=== PATIENT | female | born 1995 | race Caucasian/White ===

== ENCOUNTER 2021-03-13 15:44 | Outpatient (CLI) | payer OTHER, SELFPAY ==
[2021-03-13 16:21] LABS: Absolute Lymphocyte Count 1.73 X10^3/uL (0.83-4.51); Absolute Neutrophil Count 6.1 X10^3/uL (2.0-7.7); Basophil# 0.02 X10^3/uL; Basophil% 0.2 % (0-1); Eosinophil# 0.01 X10^3/uL; Eosinophils% 0.1 % (0-5); Hematocrit 41.4 % (37-47); Hemoglobin 14.1 g/dL (12.0-15.0); Lymphocyte # 1.73 X10^3/ul (0.83-4.51); Lymphocyte % 20.5 % (19-41); Mean Corp Hgb Conc 34.1 g/dL (32-36); Mean Corpuscular Hgb 29.8 pg (27.0-32.0); Mean Corpuscular Volume 87.5 fL (81-99); Mean Platelet Vol. 10.9 fl (6.2-12.0); Monocyte# 0.57 X10^3/uL; Monocyte% 6.8 % (0-10); NRBC Flagged by Analyzer 0 % (0-5); Neutrophil # 6.07 X10^3/uL (2.7-7.7); Neutrophil % 72.2 % (47-70); Platelet Count 264 K/mm3 (150-450); RBC Distribution Width CV 12.9 % (11.6-14.6); RBC Distribution Width SD 41.6 fl (35.1-43.9); Red Blood Count 4.73 M/mm3 (4.2-5.4); White Blood Count 8.4 K/mm3 (4.4-11.0)
[2021-03-16 04:07] LABS: Chlamydia By Nucleic Acid AMP Negative (Negative)
[2021-03-16 09:20] LABS: HIV - WCH Non-Reactive (Nonreactive); Hepatitis B Surface Antigen Non-Reactive (Nonreactive); Hepatitis C Antibody Non-Reactive (Nonreactive); Rubella IgG Reactive (Nonreactive); Syphilis Antibodies Non-reactive
[2021-03-16 11:24] LABS: Gonococcus By Nucleic Acid AMP Negative (Negative)
[2021-03-24 12:48] LABS: HPV Reflexed? NOT INDICATED
== END 2021-03-13 23:59 | disposition short-term general hospital (02) ==
LOC: WOBLAB 15:48
PROVIDERS: Visit Provider Obstetrics & Gynecology
DX: Z34.81 Encounter for supervision of other normal pregnancy, first trimester (principal); Z12.4 Encounter for screening for malignant neoplasm of cervix; Z11.3 Encounter for screening for infections with a predominantly sexual mode of transmission
CPT/HCPCS: 36415; 85025; 86703; 86762; 86780; 86803; 87086; 87088; 87340; 87491; 87591; 88175; G0145

== ENCOUNTER → 2021-08-13 | Outpatient (CLI) | payer OTHER, SELFPAY ==
[2021-08-13 10:58] LABS: Hematocrit 39.2 % (37-47); Hemoglobin 12.8 g/dL (12.0-15.0); Mean Corp Hgb Conc 32.7 g/dL (32-36); Mean Corpuscular Hgb 30.5 pg (27.0-32.0); Mean Corpuscular Volume 93.3 fL (81-99); Mean Platelet Vol. 11.2 fl (6.2-12.0); Platelet Count 226 K/mm3 (150-450); RBC Distribution Width CV 12.6 % (11.6-14.6); RBC Distribution Width SD 43.1 fl (35.1-43.9); White Blood Count 7.8 K/mm3 (4.4-11.0)
[2021-08-13 11:07] LABS: Glucose Challenge Gest 1H 50g 128 mg/dL (70-140)
== END | disposition home or self-care (01) ==
PROVIDERS: Visit Provider Obstetrics & Gynecology
DX: Z34.83 Encounter for supervision of other normal pregnancy, third trimester (principal)
CPT/HCPCS: 36415; 82950; 85027

== ENCOUNTER → 2021-10-01 | Outpatient (CLI) | payer OTHER, SELFPAY | END | disposition home or self-care (01) | LOC: LABSPEC 10-02 08:38 | PROVIDERS: Visit Provider Obstetrics & Gynecology | DX: Z36.85 Encounter for antenatal screening for Streptococcus B (principal) | CPT/HCPCS: 87081 ==

== ENCOUNTER 2021-10-24 08:05 | Inpatient (IN) | payer OTHER, SELFPAY ==
[2021-10-24] VITALS (87 sets, daily range): BP systolic 95–139; BP diastolic 51–90; PULSE 57–104; TEMP 36.1–37.3; O2SAT 72–100; BMI 27.5
[2021-10-24 07:58] LABS: ROM Internal Control Test YES-OK TO RESULT pt. (Internal QC)
[2021-10-24 08:00] LABS: ROM Patient Test POSITIVE (Negative)
[2021-10-24] MEDS: Lactated Ringers 1,000 ML 50 ML IV (09:20)
--- NOTE | 2021-10-24 09:31 | PCM.HP.BLA ---
History and Physical Date of Admission: 10/24/21 Chief complaint: Leakage of fluid History present illness: 26-year-old G1, P0 at 39 weeks and 2 days with JAJA 10/29/2021 arrives with leakage of fluid of clear fluid at 0400. Denies headache, visual changes, chest pain, shortness of breath, nausea vomit, right upper quadrant pain. Patient states good movement. Past medical history: None Medications: vitamin Past surgical history: Left meniscus, wisdom teeth, cystoscopy Allergies: No known drug allergies Family history: Denies history of DVT or PE Social history: Denies smoking, alcohol use, drug use Review of systems: Besides above pertinent positives a full review of systems was performed and found to be negative Physical exam: Vitals: Blood pressure 134/65 pulse 94 General: Normal-appearing no acute distress HEENT: Normocephalic/atraumatic no cervical of adenopathy Cardiac/respiratory: No use accessory muscles, nonlabored breathing Abdomen: Soft, nontender, gravid Extremities: No peripheral edema normal peripheral pulses Psych: Normal affect normal demeanor nonpressured speech Labs: ROM positive Assessment plan: 26-year-old G1, P0 at 39 weeks and 2 days with spontaneous rupture of membranes Admit labor and delivery CEFM GBS negative PROM to start Pitocin Routine orders Anesthesia to see
[2021-10-24 10:11] LABS: Absolute Lymphocyte Count 1.52 X10^3/uL (0.83-4.51); Absolute Neutrophil Count 6.5 X10^3/uL (2.0-7.7); Basophil# 0.01 X10^3/uL; Basophil% 0.1 % (0-1); Eosinophil# 0.01 X10^3/uL; Eosinophils% 0.1 % (0-5); Hematocrit 37.5 % (37-47); Hemoglobin 12.2 g/dL (12.0-15.0); Lymphocyte # 1.52 X10^3/ul (0.83-4.51); Lymphocyte % 17.4 % (19-41); Mean Corp Hgb Conc 32.5 g/dL (32-36); Mean Corpuscular Hgb 28.4 pg (27.0-32.0); Mean Corpuscular Volume 87.2 fL (81-99); Mean Platelet Vol. 11.6 fl (6.2-12.0); Monocyte# 0.63 X10^3/uL; Monocyte% 7.2 % (0-10); NRBC Flagged by Analyzer 0 % (0-5); Neutrophil # 6.52 X10^3/uL (2.7-7.7); Neutrophil % 74.7 % (47-70); Platelet Count 235 K/mm3 (150-450); RBC Distribution Width CV 12.6 % (11.6-14.6); RBC Distribution Width SD 39.9 fl (35.1-43.9); White Blood Count 8.7 K/mm3 (4.4-11.0)
[2021-10-24] MEDS: Oxytocin 30 units/NS 500 ml 30 UNITS/500 ML IV.SOLN IV (13:44)
[2021-10-24] MEDS: LACTATED RINGERS 500 ML 999 ML IV (15:33)
[2021-10-24] MEDS: fentaNYL-bupivacaine (epidural) 100 ML BAG EPIDURAL ×2 (16:25→20:44)
--- NOTE | 2021-10-24 16:37 | PCM.PN.OB ---
Subjective Subjective Patient more comfortable with epidural Objective Data Objective Data Vital Signs: Vital Signs Temp Pulse BP Pulse Ox 98.2 F 76 108/60 98 10/24/21 15:43 10/24/21 16:36 10/24/21 16:36 10/24/21 16:35 Weight: 175 lb 11.335 oz Body Mass Index (BMI) 27.5 Intake & Output: Intake and Output for Last 24 Hours 10/22/21 10/23/21 10/24/21 23:59 23:59 23:59 Intake Total 279.23 / 279.23 Balance 279.23 / 279.23 Lab / Micro Data Result Diagrams: 10/24/21 09:27 Labs: Laboratory Results - last 24 hr 10/24/21 07:40: Vag Amniotic Fld Detect POSITIVE H 10/24/21 09:27: WBC 8.7, RBC 4.30, Hgb 12.2, Hct 37.5, MCV 87.2, MCH 28.4, MCHC 32.5, RDW Std Deviation 39.9, RDW Coeff of Savi 12.6, Plt Count 235, MPV 11.6, Immature Gran % (Auto) 0.500, Neut % (Auto) 74.7 H, Lymph % (Auto) 17.4 L, [place] % (Auto) 7.2, Eos % (Auto) 0.1, Baso % (Auto) 0.1, Absolute Neuts (auto) 6.5, Absolute Lymphs (auto) 1.52, Nucleated RBC % 0 10/24/21 09:27: Blood Type AB POSITIVE, Antibody Screen NEGATIVE Micro: Microbiology 10/24/21 09:27 Nasal Secretion SARS-CoV-2 Antigen (Rapid) - Final Physical Exam Const alert, oriented x3, no apparent distress, average body habitus, healthy appearing and well nourished HEENT normocephalic and moist oral mucous membranes Eyes PERRL Neck full ROM Resp normal respiratory effort, no retractions and no use of accessory muscles Extremity normal to inspection, full ROM and no clubbing, cyanosis or edema Neuro moves all extremities and no focal motor deficits Psych mental status grossly normal, affect normal, speech normal and activity/motor behavior normal Assessment & Plan (1) : PLAN: Patient seen and examined. Just obtained epidural now much more comfortable. We will recheck cervix when epidural comfort fully improved. Continue to titrate Pitocin
[2021-10-24] MEDS: 0.9% Saline Lock 10 ML Syringe IV (18:10)
[2021-10-24] MEDS: Ondansetron 4 MG/2 ML Vial IV ×2 (18:10→22:54)
[2021-10-24] MEDS: Lactated Ringers 1,000 ML 200 ML IV (19:28)
[2021-10-24] MEDS: proCHLORPERazine 10 MG/2 ML Vial IV (23:32)
[2021-10-25] VITALS (33 sets, daily range): BP systolic 82–124; BP diastolic 37–65; PULSE 56–98; RESP 16; TEMP 36.1–38.1; O2SAT 81–100
[2021-10-25] MEDS: Lactated Ringers 1,000 ML 200 ML IV (01:19)
[2021-10-25] MEDS: Sodium Citrate/Citric Acid 30 ML UDC PO (02:26)
[2021-10-25] MEDS: Acetaminophen 500 MG Tablet 1000 MG PO ×4 (02:26→21:46)
[2021-10-25] MEDS: Cefazolin 2 GM in 0.9% Normal Saline 100 ML IV (02:34)
--- NOTE | 2021-10-25 03:17 | EX.PCM.OBRPT ---
Details Operative Information Date of Procedure: 10/25/21 Pre-Operative Diagnosis: Term, maternal exhaustion, attempted vacuum delivery Post-Operative Diagnosis: Term, maternal exhaustion, attempted vacuum delivery customer relations consultant #1: Bacilio Vasques Findings Description of Procedure: Procedure: Primary low transverse section Via Pfannenstiel incision Surgeon: Yimi Madsen MD Anesthesia: Epidural EBL: 600 cc Urine output: 200 cc IV fluids: 1000 cc Complications: None Specimen: None Findings: Female infant in vertex position Apgars 9/9. Normal uterus, tubes, and ovaries. Consent: Patient arrived with SROM/PROM and subsequently had complete dilation and pushed for nearly 3 hours. Patient was seen and examined complete dilation +2 station ROP. Pelvis felt to be adequate, anesthesia adequate for pain relief, baby did not palpate to be macrosomic. Educated patient on options including vacuum delivery versus section risk benefits alternatives. Patient elects for vacuum-assisted vaginal delivery. Patient understood risks of cephalhematoma and shoulder dystocia. Vacuum delivery procedure was explained to patient. Vaginal exam was reperformed and confirmed complete dilation +2 station ROP. Kiwi vacuum was placed 3 cm anterior to the posterior fontanelle toward the face. Vacuum suction was applied and right hand provided traction in the axis of the pelvis during maternal pushing. Proceeded with vacuum assistance for 6 contractions, 2 pop offs. At this time patient states she is too exhausted to continue pushing. Discussed continuing vacuum versus section risk benefits alternatives. Patient elects for primary section for maternal exhaustion after attempted vacuum delivery. Patient understands risk of the procedure include but are not limited to visceral or vascular injury, prolonged hospitalization, blood loss need for transfusion, reoperation. Patient states understanding wish to proceed. All questions were answered and consent was signed. Vacuum delivery was halted and patient was prepared for the OR. Procedure: Patient was brought back to the OR where epidural anesthesia was found to be adequate. 2 g of Ancef and 500 mg of azithromycin were given for infection prophylaxis. Patient was prepared and draped in a supine position with leftward tilt. A Pfannenstiel incision was made at the skin with a scalpel. Incision was carried down to the fascia with a scalpel. The fascia was excised and extended laterally. Rectus muscle was dissected at the midline down to the level of pubic symphysis. Peritoneum was entered bluntly. Peritoneum was extended superiorly and inferiorly with good visualization of the bladder. Bladder blade was inserted and vesicouterine peritoneum was identified. Low transverse hysterotomy was made. Hand was placed into the incision and gentle fundal pressure was applied once the head was brought into the incision and the bladder blade was removed. Head and shoulders were delivered with ease. Cord was cut and clamped. Baby handed off to nursing. Placenta was delivered via cord traction and fundal massage. IV oxytocin was initiated in order to facilitate uterine contractions. Uterus was exteriorized and wiped out with dry laparotomy sponge in order to remove remaining placental membranes. Uterus was closed in a continuous running fashion. Good hemostasis was noted. Uterus was placed back into the abdominal cavity and good hemostasis was noted. Fascia was closed in a continuous running fashion with PDS suture. Subcutaneous irrigation was performed and good hemostasis was noted. Skin was closed in a subcuticular fashion. Good hemostasis was noted. All counts were correct x2. Patient tolerated the procedure well and was brought to recovery in a stable condition.
[2021-10-25] MEDS: Oxytocin 30 units/NS 500 ml 30 UNITS/500 ML IV.SOLN 167 UNITS IV (03:45)
[2021-10-25] MEDS: Ketorolac 30 MG/ML Syringe IV ×4 (04:06→22:15)
[2021-10-25] MEDS: Lactated Ringers 1,000 ML 100 ML IV (06:54)
[2021-10-25] MEDS: Senna/Docusate Sodium 1 Tablet PO (09:55)
--- NOTE | 2021-10-25 10:10 | NURSING ---
epidural catheter removed, blue tip intact. patient tolerated well
[2021-10-25] MEDS: Cefazolin 1 GM/50 ML BAG IV ×2 (10:27→18:47)
[2021-10-25] MEDS: 0.9% Saline Lock 10 ML Syringe IV ×6 (10:35→22:16)
[2021-10-25] MEDS: Ondansetron 4 MG/2 ML Vial IV ×2 (10:35→15:13)
--- NOTE | 2021-10-25 22:06 | NURSING ---
Pt unable to void wihtin 6 hours of sanabria removal, despite running water in background, using warm water from cara bottle, and taking a shower. Per policy, pt given straight cath by this RN. Straight cath returned 1400 cc's of clear, pale yellow urine. Pt tolerated procedure well. Codie RN
[2021-10-26 00:16] VITALS: BP 104/61; PULSE 82; RESP 16; TEMP 36.5; O2SAT 97
[2021-10-26 04:00] VITALS: BP 104/71; PULSE 65; RESP 16; TEMP 36.3; O2SAT 97
[2021-10-26] MEDS: Acetaminophen 500 MG Tablet 1000 MG PO ×2 (04:13→09:41)
[2021-10-26] MEDS: Ibuprofen 600 MG Tablet PO ×2 (04:13→09:42)
[2021-10-26 05:50] LABS: Hematocrit 29.4 % (37-47); Hemoglobin 9.6 g/dL (12.0-15.0); Mean Corp Hgb Conc 32.7 g/dL (32-36); Mean Corpuscular Hgb 28.7 pg (27.0-32.0); Mean Corpuscular Volume 87.8 fL (81-99); Mean Platelet Vol. 10.8 fl (6.2-12.0); Platelet Count 161 K/mm3 (150-450); RBC Distribution Width CV 12.9 % (11.6-14.6); RBC Distribution Width SD 40.7 fl (35.1-43.9); Red Blood Count 3.35 M/mm3 (4.2-5.4); White Blood Count 11.1 K/mm3 (4.4-11.0)
--- NOTE | 2021-10-26 08:17 | PCM.DC.BLA ---
Discharge Summary Date of Admission: 10/24/21 Date of Discharge: 10/26/21 Summary: Patient arrived on 10/24/2021 in labor. Subsequently became complete dilation and pushed for nearly 3 hours and elected for vacuum-assisted vaginal delivery, failed vacuum-assisted vaginal delivery then proceeded to primary section on 10/25/2021. Routine postoperative recovery. Discharge home on 10/26/2021 Meaningful Use Info Meaningful Use Diagnoses (Choose all that apply): None applicable Discharge Plan Admission Admit Date/Time: 10/24/21 08:05 Primary Reason for Your Visit: Labor Attending Provider: Yimi Madsen Primary Care Provider: Nanette Garsia Primary Instructions Additional Instructions / Restrictions: Regular diet. Okay to shower. No tub baths for 2 weeks. No lifting over 25 pounds for 2 to 3 weeks. No intercourse for 4 to 6 weeks. Call if fevers, chills, chest pain, shortness of breath. Follow-up 2 weeks postoperatively Discharge Orders/Prescriptions Prescriptions: New oxycodone 5 mg Tablet 5 mg PO Q6H PRN PRN (Reason: Pain Score 7-10) 4 Days Qty: 16 0RF Discontinued Referrals / Follow Up: Care Physician,Nanette Primary [Primary Care Provider] - Disposition Disposition (needs filled in before D/C Order can be placed): Home, Self Care
--- NOTE | 2021-10-26 08:18 | PN.OBGYN_ITS ---
Subjective Subjective No overnight complaints. Pain well controlled Objective Data Objective Data Vital Signs: Vital Signs Temp Pulse Resp BP Pulse Ox O2 Del Method 97.4 F L 65 16 104/71 97 Room Air 10/26/21 04:00 10/26/21 04:00 10/26/21 04:00 10/26/21 04:00 10/26/21 04:00 10/26/21 04:00 Oxygen Delivery Method Room Air Weight: 175 lb 11.335 oz Body Mass Index (BMI) 27.5 Intake & Output: Intake and Output for Last 24 Hours 10/24/21 10/25/21 10/26/21 23:59 23:59 23:59 Intake Total 1528.67 / 1528.67 4450.5 / 4450.5 Output Total 2600 / 2600 800 / 800 Balance 1528.67 / 1528.67 1850.5 / 1850.5 -800 / -800 Lab / Micro Data Result Diagrams: 10/26/21 05:35 Labs: Laboratory Results - last 24 hr 10/26/21 05:35: WBC 11.1 H, RBC 3.35 L, Hgb 9.6 L, Hct 29.4 L, MCV 87.8, MCH 28.7, MCHC 32.7, RDW Std Deviation 40.7, RDW Coeff of Savi 12.9, Plt Count 161, MPV 10.8 Micro: Microbiology 10/24/21 09:27 Nasal Secretion SARS-CoV-2 Antigen (Rapid) - Final Physical Exam Const alert, oriented x3, no apparent distress, average body habitus, healthy appearing and well nourished HEENT normocephalic and moist oral mucous membranes Eyes PERRL Neck full ROM Resp normal respiratory effort, no retractions and no use of accessory muscles GI GI Narrative: Soft, nontender, bandage clean dry and intact Extremity normal to inspection, full ROM and no clubbing, cyanosis or edema Neuro moves all extremities and no focal motor deficits Psych mental status grossly normal, affect normal, speech normal and activity/motor behavior normal Assessment & Plan (1) delivery delivered: PLAN: Postop day 1 status post primary section for failed vacuum-sylwia nick vaginal delivery. Breast-feeding. Pain well controlled. Okay to discharge home if okay with floor care specialist
[2021-10-26 08:36] VITALS: BP 102/65; PULSE 90; RESP 16; TEMP 36.1; O2SAT 97
[2021-10-26] MEDS: Senna/Docusate Sodium 1 Tablet PO (09:42)
== END 2021-10-26 10:10 | disposition home or self-care (01) | DRG 788 ==
LOC: WPOUT 08:11 → WP 08:11
PROVIDERS: Admitting Provider Obstetrics & Gynecology; Referring Provider Obstetrics & Gynecology; Visit Provider Obstetrics & Gynecology
DX: O42.92 Full-term premature rupture of membranes, unspecified as to length of time between rupture and onset of labor (principal); O66.5 Attempted application of vacuum extractor and forceps; O75.81 Maternal exhaustion complicating labor and delivery; Z37.0 Single live birth; Z3A.39 39 weeks gestation of pregnancy
CPT/HCPCS: 59025; 59050; 84112; 85025; 85027; 86850; 86900; 86901; 87811; 99218; 99251; J7120; A4216; G0378; G0463; J2405

== ENCOUNTER → 2022-07-20 | Outpatient (CLI) | payer OTHER, SELFPAY ==
[2022-07-20 11:30] LABS: hCG Titer Quant., Serum < 1 mIU/mL (1-3)
== END | disposition home or self-care (01) ==
LOC: WOBLAB 10:25
PROVIDERS: Visit Provider Student in an Organized Health Care Education/Training Program
DX: N91.2 Amenorrhea, unspecified (principal)
CPT/HCPCS: 36415; 84702

== ENCOUNTER → 2022-10-13 | Outpatient (CLI) | payer OTHER, SELFPAY ==
[2022-10-13 16:18] LABS: hCG Titer Quant., Serum 265 mIU/mL (1-3)
== END | disposition home or self-care (01) ==
LOC: LAB 15:40
PROVIDERS: Referring Provider Obstetrics & Gynecology; Visit Provider Obstetrics & Gynecology
DX: O09.299 Supervision of pregnancy with other poor reproductive or obstetric history, unspecified trimester (principal); Z3A.00 Weeks of gestation of pregnancy not specified
CPT/HCPCS: 36415; 84702

== ENCOUNTER → 2022-10-15 | Outpatient (CLI) | payer OTHER, SELFPAY ==
[2022-10-15 16:43] LABS: hCG Titer Quant., Serum 692 mIU/mL (1-3)
== END | disposition home or self-care (01) ==
PROVIDERS: Referring Provider Obstetrics & Gynecology; Visit Provider Obstetrics & Gynecology
DX: O09.299 Supervision of pregnancy with other poor reproductive or obstetric history, unspecified trimester (principal); Z3A.00 Weeks of gestation of pregnancy not specified
CPT/HCPCS: 36415; 84702

== ENCOUNTER → 2022-10-27 | Outpatient (CLI) | payer OTHER, SELFPAY ==
--- NOTE | 2022-10-27 15:33 | US_ITS ---
INDICATION: wellbeing EXAMINATION: Ultrasound US OB Transvaginal TECHNIQUE: Transvaginal pelvic ultrasound was performed. Grayscale, spectral waveform, and color flow Doppler evaluation of the adnexa. COMPARISON: No relevant prior comparison study available LMP: 09/12/2022. Gestational age by LMP: 6 weeks 3 days. JAJA by LMP: 06/19/2023. FINDINGS: UTERUS: 10.2 x 5.1 x 7 cm in diameter. Cervix is closed. RIGHT OVARY: 4 x 2.2 x 2.3 cm. 1.7 x 2.4 x 2.3 cm thick-walled cystic lesion, consistent with a corpus luteal cyst. Doppler flow is documented within the right ovary. LEFT OVARY: 2.4 x 1.3 x 1.8 cm. Normal. Doppler flow is documented within the left ovary. FREE FLUID: None. INTRAUTERINE GESTATIONAL SAC: A single well-defined ovoid intrauterine gestational sac is present, with mean sac diameter 1.71 cm, corresponding to gestational age of 6 weeks 4 days. YOLK SAC: Identified. The yolk sac measures 3 mm in diameter. POLE: Identified CRL 0.52 cm. ESTIMATED GESTATION AGE by crown-rump length: 6 weeks 3 days. HEART MOTION: 126 bpm. PLACENTA: Not visualized due to age. SUBCHORIONIC HEMORRHAGE: None. AMNIOTIC FLUID: Qualitatively normal. US/Transvaginal w/Preg US IMPRESSION: Single live intrauterine . Estimated gestational age by today''s ultrasound is 6 weeks 4 days. JAJA by today''s ultrasound: 06/18/2023. Electronically Signed: Keegan Watters MD at 3:42 EDT ,
== END | disposition home or self-care (01) ==
LOC: US 15:31
PROVIDERS: PCP Nurse Practitioner Family; Referring Provider Registered Nurse; Visit Provider Registered Nurse
DX: Z34.91 Encounter for supervision of normal pregnancy, unspecified, first trimester (principal)
CPT/HCPCS: 76817

== ENCOUNTER → 2022-11-08 | Outpatient (CLI) | payer OTHER, SELFPAY ==
[2022-11-11 12:09] LABS: Chlamydia By Nucleic Acid AMP Negative (Negative); Gonococcus By Nucleic Acid AMP Negative (Negative)
== END | disposition home or self-care (01) ==
LOC: LABSPEC 16:45
PROVIDERS: PCP Nurse Practitioner Family; Referring Provider Obstetrics & Gynecology; Visit Provider Obstetrics & Gynecology
DX: Z34.90 Encounter for supervision of normal pregnancy, unspecified, unspecified trimester (principal); Z3A.00 Weeks of gestation of pregnancy not specified
CPT/HCPCS: 87086; 87088; 87491; 87591

== ENCOUNTER → 2022-12-09 | Outpatient (CLI) | payer OTHER, SELFPAY ==
[2022-12-09 13:23] LABS: Absolute Lymphocyte Count 1.44 X10^3/uL (0.83-4.51); Absolute Neutrophil Count 5.3 X10^3/uL (2.0-7.7); Basophil# 0.02 X10^3/uL; Basophil% 0.3 % (0-1); Eosinophil# 0.01 X10^3/uL; Eosinophils% 0.1 % (0-5); Hematocrit 38.9 % (37-47); Hemoglobin 12.6 g/dL (12.0-15.0); Lymphocyte # 1.44 X10^3/ul (0.83-4.51); Mean Corp Hgb Conc 32.4 g/dL (32-36); Mean Corpuscular Hgb 28.1 pg (27.0-32.0); Mean Corpuscular Volume 86.8 fL (81-99); Mean Platelet Vol. 10.6 fl (6.2-12.0); Monocyte# 0.44 X10^3/uL; Monocyte% 6.1 % (0-10); NRBC Flagged by Analyzer 0 % (0-5); Neutrophil # 5.28 X10^3/uL (2.7-7.7); Neutrophil % 73.4 % (47-70); Platelet Count 215 K/mm3 (150-450); RBC Distribution Width CV 15.8 % (11.6-14.6); RBC Distribution Width SD 50.1 fl (35.1-43.9); Red Blood Count 4.48 M/mm3 (4.2-5.4); White Blood Count 7.2 K/mm3 (4.4-11.0)
[2022-12-09 15:17] LABS: HIV - WCH Non-Reactive (Nonreactive); Hepatitis B Surface Antigen Non-Reactive (Nonreactive); Hepatitis C Antibody Non-Reactive (Nonreactive); Rubella IgG Reactive (Nonreactive); Syphilis Antibodies Non-reactive
== END | disposition home or self-care (01) ==
PROVIDERS: PCP Nurse Practitioner Family; Referring Provider Obstetrics & Gynecology; Visit Provider Obstetrics & Gynecology
DX: Z34.90 Encounter for supervision of normal pregnancy, unspecified, unspecified trimester (principal); Z3A.00 Weeks of gestation of pregnancy not specified
CPT/HCPCS: 36415; 85025; 86703; 86762; 86780; 86803; 86850; 86900; 86901; 87340

== ENCOUNTER → 2023-01-05 | Outpatient (CLI) | payer OTHER, SELFPAY | END | disposition home or self-care (01) | LOC: LABSPEC 15:31 | PROVIDERS: PCP Nurse Practitioner Family; Referring Provider Obstetrics & Gynecology; Visit Provider Obstetrics & Gynecology | DX: N89.8 Other specified noninflammatory disorders of vagina (principal) | CPT/HCPCS: 87070; 87205 ==

== ENCOUNTER → 2023-03-17 | Outpatient (CLI) | payer OTHER, SELFPAY ==
--- OUTSIDE RECORDS SUMMARY | 2023-03-17 08:06 | XMS RPT_ITS | CCD ---
Author Name Unknown Address [address] [place] [id number] Organization [facility] Care Team Providers Care Knitter Wire Mesh Name Role Phone ALAN HAJI (SHAWNA) Unavailable UnavailMarisela Morgan Primary Care Provider [phone] Unavailable Primary Care Provider UnavailColleen Khoury Admitting Unavailable Colleen Newman Attending Unavailable MARISELA ROMERO Primary Care Unavailable COLLEEN NEWMAN. Attending Unavailable DESTINY MANCIA DO Attending Unavailable DESTINY MANCIA DO Primary Care Unavailable DESTINY MANCIA DO Admitting Unavailable SHERON PATTON CNP Consulting Unavailable SHERON PATTON CNP Referring Unavailable DESTINY MANCIA DO Admitting Unavailable DESTINY MANCIA DO Primary Care Unavailable DESTINY MANCIA DO Attending Unavailable PROVIDER, UNKNOWN Consulting Unavailable PROVIDER, UNKNOWN Consulting Unavailable NO PRIMARY CAREMD Primary Care Unavailable MILTON CASTILLO Referring Unavailable CHARLY MONIQUE Attending Unavailable XIMENA RUIZ Attending Unavailable NO PRIMARY CAREMD Primary Care Unavailable MILTON CASTILLO Referring Unavailable Medications Current Medications Medication Drug Class(es) Dates Sig (Normalized) Sig (Original) cephalexin 500 mg oral capsule (1 source) Cephalosporin Antibacterial Start: 04-14-2018 End: 04-21-2018 take 1 capsule by mouth three times daily cephALEXin (KEFLEX) 500 MG capsule Take 1 (one) capsule (500 mg total) by mouth 3 (three) times a day for 7 days . 21 capsule 0 04/14/2018 04/21/2018 Active Ethinyl Estradiol / Ferrous fumarate / Norethindrone (1 source) Estrogen take 1 tablet by mouth once daily, then take 0.05 tablet by mouth once norethindrone-ethin yl estradiol (JUNE03/12) 1 mg-20 mcg (21)/75 mg (7) per tablet Take 1 tablet by mouth daily . 0 Active Ethinyl Estradiol / norgestimate (1 source) Progestin, Estrogen Start: 02-28-2018 End: 02-28-2019 take 1 tablet by mouth once daily norgestimate-ethiny l estradiol (SPRINTEC, 28,) 0.25-35 mg-mcg per tablet Take 1 (one) tablet by mouth daily . 30 tablet 7 02/28/2018 02/28/2019 Active hydrocortisone 25 mg/ml topical cream (1 source) Corticosteroid Start: 02-28-2018 End: 02-28-2019 hydrocortisone (ANUSOL-HC) 2.5 % rectal cream Insert into the rectum 2 (two) times a day . 30 g 1 02/28/2018 02/28/2019 Active phenazopyridine hydrochloride 200 mg oral tablet (1 source) Start: 04-14-2018 End: 04-16-2018 take 1 tablet by mouth three times daily as needed for pain phenazopyridine (PYRIDIUM) 200 MG tablet Take 1 (one) tablet (200 mg total) by mouth 3 (three) times a day as needed for pain . 6 tablet 0 04/14/2018 04/16/2018 Active Problems Active Problems Problem Classification Problem Date Documented Da te Episodic/Chronic Spondylosis; intervertebral disc disorders; other back problems (1 source) Backache; Translations: [Back pain, unspecified back location, unspecified back pain laterality, unspecified chronicity] Episodic Urinary tract infections (1 source) Acute cystitis; Translations: [Acute cystitis without hematuria] Episodic Past or Other Problems Problem Classification Problem Date Documented Da te Episodic/Chronic Abdominal pain (1 source) Unspecified abdominal pain; Translations: [Unspecified abdominal pain] Onset: 01-03-2017 Episodic Results Test Name Value Interpretation Reference Range Facil ity Vital Signs Date Time Vital Sign Value Performing Clinician Faci lity 04-14-2018 18:25-0500 BMI (Body Mass Index) 23.49 kg/m2 [facility] 04-14-2018 18:25-0500 [facility] 97.81 [facility]degF[facility]:25-0500 BP Diastolic 87 mm[Hg] [facility] 04-14-2018 18:25-0500 BP Systolic 136 mm[Hg] [facility] 04-14-2018 18:25-0500 Height 170.2 cm [facility] 04-14-2018 18:25-0500 Pulse (Heart Rate) 93 /min Colleen Newman [facility] 04-14-2018 18:25-0500 Pulse Oximetry 98 % Colleen Newman [facility] 04-14-2018 18:25-0500 Respiratory Rate 18 /min Colleen Newman [facility] 04-14-2018 18:25-0500 Weight 68.04 kg Colleen Newman [facility] Encounters Encounter Date Encounter Type Care Provider Facility Start: 02-18-2023 End: 02-18-2023 ambulatory [facility] Start: 02-01-2023 End: 02-01-2023 ambulatory XIMENA Tavarez [facility] Start: 12-15-2022 End: 12-16-2022 Emergency department patient visit [facility] Start: 04-14-2018 End: 04-18-2018 Patient encounter procedure MARISELA Otoole [facility] Start: 04-14-2018 End: 04-14-2018 Office outpatient visit 15 minutes Colleen Newman Work Phone: [facility] [place] Procedures Date Procedure Procedure Detail Performing Clinician Start: 04-14-2018 Urinalysis, automated L valarie Newman Work Phone: Plan of Treatment Date Care Activity Detail Author Start: 10-22-2017 Influenza vaccination given SE QUENTIAL INFLUENZA VACCINE (#1) [facility] Start: 09-11-2010 Vaccination for olivia n papillomavirus HPV VACCINES (1 - Female 3-dose series) [facility] Start: 1995 Screening for malign ant neoplasm of cervix PAP SMEAR [facility] Start: 1995 Tetanus vaccination TETANUS EVERY 10 YR [facility] Bacteria identified Aer cx Nom (Unsp spec) Urine culture Routine Back pain, unspecified back location, unspecified back pain laterality, unspecified chronicity Ordered: 04/14/2018 [facility] Payers Date Payer Category Payer Private Health Insurance [id number] 2017 Unknown [facility] [employer] [employer] PL[employer] xxxxxxxxx 2017-Present xxxxxxxxx [id number] 1995 Unknown [id number] 1995 Unknown [id number] 1995 Unknown [id number] 1995 Unknown [id number] 1995 Unknown [id number] Unknown [id number] Unknown [id number] Social History Date Type Detail Facility Start: 04-14-2018 Tobacco smoking status NHIS Never sm [facility] Sex Assigned At Not on file [facility] Summary Purpose Family History No Family History Records FoundNo Family History Records FoundNo Family History Records FoundNo Family History Records FoundNo Family History Records FoundNo Family History Records FoundNo Family History Records Found Advance Directives No Advanced Directives Records Found Patient has advance care planning documents on file. For more information, please contact: [place] [address] No Advanced Directives Records FoundNo Advanced Directives Records FoundNo Advanced Directives Records FoundNo Advanced Directives Records FoundNo Advanced Directives Records FoundNo Advanced Directives Records Found Instructions * Patient Instructions* Colleen Newman, [employer] - 04/14/2018 7:12 PM EST Probiotics may help protect the gut from loss of good (protective) bacteria when you take an antibiotic. I get mine from the refrigerator at a [employer] store, but pharmacies also sell them. Take one capsule one or two time daily with full glass of water on an empty stomach (1 hour before or 2 hours after eating). Please let Colleen Know if the treatment works!! Urinary Tract Infection in Women: Care Instructions Your Care Instructions A urinary tract infection, or UTI, is a general term for an infection anywhere between the kidneys and the urethra (where urine comes out). Most UTIs are bladder infections. They often cause pain or burning when you urinate. UTIs are caused by bacteria and can be cured with antibiotics. Be sure to complete your treatment so that the infection goes away. Follow-up care is a martin part of your treatment and safety. Be sure to make and go to all appointments, and call your doctor if you are having problems. It's also a good idea to know your test resultsand keep a list of the medicines you take. How can you care for yourself at home? Take your antibiotics as directed. Do not stop taking them just because you feel better. You need to take the full course of antibiotics. Drink extra water and other fluids for the next day or two. This may help wash out the bacteria that are causing the infection. (If you have kidney, heart, or liver disease and have to limit fluids, talk with your doctor before you increase your fluid intake.) Avoid drinks that are carbonated or have caffeine. They can irritate the bladder. Urinate often. Try to empty your bladder each time. To relieve pain, take a hot bath or lay a heating pad set on low over your lower belly or genital area. Never go to sleep with a heating pad in place. To prevent UTIs Drink plenty of water each day. This helps you urinate often, which clears bacteria from your system. (If you have kidney, heart, or liver disease and have to limit fluids, talk with your doctor before you increase your fluid intake.) Urinate when you need to. Urinate right after you have sex. Change sanitary pads often. Avoid douches, bubble baths, feminine hygiene sprays, and other feminine hygiene products that havedeodorants. After going to the bathroom, wipe from front to back. When should you call for help? Call your doctor now or seek immediate medical care if: Symptoms such as fever, chills, nausea, or vomiting get worse or appear for the first time. You have new pain in your back just below your rib cage. This is called flank pain. There is new blood or pus in your urine. You have any problems with your antibiotic medicine. Watch closely for changes in your health, and be sure to contact your doctor if: You are not getting better after taking an antibiotic for 2 days. Your symptoms go away but then come back. Where can you learn more? Log into your personal health record on [email or web address]://[employer]esar[employer] and enter K848 in the Education box to learn more about Urinary Tract Infection in Women: Care Instructions. Current as of: May 10, 2017 Content Version: 11.9 3971-5393 [employer]. Care instructions adapted under license by your healthcare professional. If you have questions about a medical condition or this instruction, always ask your healthcare professional. [employer] disclaims any warranty or liability for your use of this information. in this encounter History of Present Illness * Colleen Newman CNP - 04/14/2018 6:52 PM EST Chief Complaint Patient presents with Back Pain Lower back pain for the past 2 todays. History of bladder problems SUBJECTIVE 22 y.o. female presents Back Pain (Lower back pain for the past 2 todays. History of bladder problems) Hx of bladder infections. For two days frequency. Now having pain in back and into her perineum. MEDICAL ISSUES History reviewed. No pertinent past medical history. There is no problem list on file for this patient. SOCIAL HISTORY Social History Socioeconomic History Marital status: Single Spouse name: Not on file Number of children: Not on file Years of education: Not on file Highest education level: Not on file Social Needs Financial resource strain: Not on file Food insecurity - worry: Not on file Food insecurity - inability: Not on file Transportation needs - medical: Not on file Transportation needs - non-medical: Not on file Occupational History Not on file Tobacco Use Smoking status: Never Smoker Smokeless tobacco: Never Used Substance and Sexual Activity Alcohol use: No Drug use: No Sexual activity: Yes Partners: Male control/protection: Pill Other Topics Concern Not on file Social History Narrative Not on file FAMILY HISTORY Family History Problem Relation Age of Onset Cancer Maternal Grandmother Diabetes Paternal Grandmother REVIEW OF SYSTEMS Review of Systems Constitutional: Positive for fatigue. Negative for activity change, appetite change and fever. HENT: Negative. Respiratory: Negative for cough. Gastrointestinal: Positive for nausea (off and on). Genitourinary: Positive for frequency. Neurological: Positive for dizziness and headaches. Hematological: Negative for adenopathy. Psychiatric/Behavioral: Negative for agitation and behavioral problems. MEDICATIONS PRIOR TO VISIT Current Outpatient Medications on File Prior to Visit Medication Sig Dispense Refill norethindrone-ethinyl estradiol (03/12) 1 mg-20 mcg (21)/75 mg (7) per tablet Take 1 tabletby mouth daily . hydrocortisone (ANUSOL-HC) 2.5 % rectal cream Insert into the rectum 2 (two) times a day . 30 g 1 norgestimate-ethinyl estradiol (SPRINTEC, 28,) 0.25-35 mg-mcg per tablet Take 1 (one) tablet by mouth daily . 30 tablet 7 No current facility-administered medications on file prior to visit. ALLERGIES/INTOLERANCES No Known Allergies OBJECTIVE BP 136/87 (BP Location: Right arm, Patient Position: Sitting, BP Cuff Size: Adult) Pulse 93 Temp 97.8 F (36.6 C) (Oral) Resp 18 Ht 5' 7 Wt 68 kg (150 lb) LMP 03/31/2018 SpO2 98% BMI 23.49 kg/m Physical Exam Constitutional: She is oriented to person, place, and time. She appears well- developed and well-nourished. HENT: Head: Normocephalic and atraumatic. Eyes: EOM are normal. Cardiovascular: Normal rate and regular rhythm. Pulmonary/Chest: Effort normal and breath sounds normal. Abdominal: Soft. Bowel sounds are normal. There is tenderness. There is no rebound and no guarding. Musculoskeletal: Normal range of motion. Neurological: She is alert and oriented to person, place, and time. Skin: Skin is warm and dry. Psychiatric: She has a normal mood and affect. Her behavior is normal. PROCEDURE Procedures Results Recent Results (from the past 168 hour(s)) POC Urinalysis Dipstick,Auto UC Collection Time: 04/14/18 6:38 PM Result Value Ref Range POC Color, Urine Lani (A) Yellow, Light Yellow, Dark Yellow Clarity, UA Slightly Cloudy (A) Clear Glucose, UA Negative Normal, Negative mg/dL Bilirubin, UA Negative Negative Ketones, UA Trace (A) Negative mg/dL Spec Grav, UA 1.025 1.005 - 1.025 Blood, UA Negative Negative pH, UA 6.0 5.0 - 7.0 Protein, UA Negative Negative mg/dL Urobilinogen, UA 0.2 <2.0, 0.2, Normal, Negative, 1.0, 2.0, <1.0 mg/dL Nitrite, UA Negative Negative Leukocyte Esterase, UA Trace (A) Negative ASSESSMENT/PLAN (expressed as patient instructions): SNOMED CT(R) 1. Back pain, unspecified back location, unspecified back pain laterality, unspecified chronicity BACKACHE POC Urinalysis Dipstick,Auto UC Urine culture 2. Acute cystitis without hematuria ACUTE CYSTITIS No follow-ups on file. ADDITIONAL CLINICAL COMMENTS She has long history of Utis and seeing urology. NO final dx made except repeated UTIs. ORDERS PLACED THIS VISIT Orders Placed This Encounter Procedures Urine culture POC Urinalysis Dipstick,Auto UC MEDICATION LIST AT END OF VISIT Current Outpatient Medications Medication Sig Dispense Refill norethindrone-ethinyl estradiol (03/12) 1 mg-20 mcg (21)/75 mg (7) per tablet Take 1 tabletby mouth daily . cephALEXin (KEFLEX) 500 MG capsule Take 1 (one) capsule (500 mg total) by mouth 3 (three) times a day for 7 days . 21 capsule 0 hydrocortisone (ANUSOL-HC) 2.5 % rectal cream Insert into the rectum 2 (two) times a day . 30 g 1 norgestimate-ethinyl estradiol (SPRINTEC, 28,) 0.25-35 mg-mcg per tablet Take 1 (one) tablet by mouth daily . 30 tablet 7 phenazopyridine (PYRIDIUM) 200 MG tablet Take 1 (one) tablet (200 mg total) by mouth 3 (three) times a day as needed for pain . 6 tablet 0 No current facility-administered medications for this visit. in this encounter Assessments Diagnosis Back pain, unspecified back location, unspecified back pain laterality, unspecified chronicity- Primary Acute cystitis without hematuria Additional Source Comments INFORMATION SOURCE (unrecogn ized section and content) DATE CREATED AUTHOR AUTHOR'S ORGANIZ ATION 05/05/2018 [facility] DATE CREATED AUTHOR AUTHOR'S ORGANIZ ATION 05/28/2019 [facility] DATE CREATED AUTHOR AUTHOR'S ORGANIZ ATION 03/16/2020 [facility] DATE CREATED AUTHOR AUTHOR'S ORGANIZ ATION 12/18/2022 [facility] DATE CREATED AUTHOR AUTHOR'S ORGANIZ ATION 02/19/2023 [facility] Reason for Visit (unrecogniz ed section and content) FOR RECORDS PERTAINING TO PATIENTS WHO ARE OR HAVE BEEN ENROLLED IN A CHEMICAL DEPENDENCY/SUBSTANCEABUSE PROGRAM, SOME INFORMATION MAY BE OMITTED. This clinical summary was aggregated from multiple sources. Caution should be exercised in using it in the provision of clinical care. This summary normalizes information from multiple sources, and as a consequence, information in this document may materially change the coding, format and clinical context of patient data. In addition, data may be omitted in some cases. CLINICAL DECISIONS SHOULD BE BASED ON THE PRIMARY CLINICAL RECORDS. [employer] [facility]. provides no warranty or guarantee of the accuracy or completeness of information in this document.
[2023-03-17 08:07] LABS: Absolute Lymphocyte Count 1.79 X10^3/uL (0.83-4.51); Absolute Neutrophil Count 5.5 X10^3/uL (2.0-7.7); Basophil# 0.03 X10^3/uL; Basophil% 0.4 % (0-1); Eosinophil# 0.04 X10^3/uL; Eosinophils% 0.5 % (0-5); Hematocrit 34.9 % (37-47); Hemoglobin 11.2 g/dL (12.0-15.0); Lymphocyte # 1.79 X10^3/ul (0.83-4.51); Mean Corp Hgb Conc 32.1 g/dL (32-36); Mean Corpuscular Hgb 28.1 pg (27.0-32.0); Mean Corpuscular Volume 87.5 fL (81-99); Mean Platelet Vol. 10.2 fl (6.2-12.0); Monocyte# 0.43 X10^3/uL; Monocyte% 5.5 % (0-10); NRBC Flagged by Analyzer 0 % (0-5); Neutrophil # 5.45 X10^3/uL (2.7-7.7); Neutrophil % 70.1 % (47-70); Platelet Count 208 K/mm3 (150-450); RBC Distribution Width CV 13.1 % (11.6-14.6); RBC Distribution Width SD 41.6 fl (35.1-43.9); Red Blood Count 3.99 M/mm3 (4.2-5.4); White Blood Count 7.8 K/mm3 (4.4-11.0)
[2023-03-17 08:33] LABS: Glucose Challenge Gest 1H 50g 132 mg/dL (70-140)
[2023-03-17 10:09] LABS: HIV - WCH Non-Reactive (Nonreactive); Syphilis Antibodies Non-reactive
== END | disposition home or self-care (01) ==
LOC: PAVLAB 07:45
PROVIDERS: PCP Nurse Practitioner Family; Referring Provider Obstetrics & Gynecology; Visit Provider Obstetrics & Gynecology
DX: Z34.90 Encounter for supervision of normal pregnancy, unspecified, unspecified trimester (principal); Z3A.00 Weeks of gestation of pregnancy not specified
CPT/HCPCS: 36415; 82950; 85025; 86703; 86780

== ENCOUNTER → 2023-05-20 | Outpatient (CLI) | payer OTHER, SELFPAY ==
--- NOTE | 2023-05-20 14:19 | US_ITS ---
STUDY: SECOND AND THIRD TRIMESTER OBSTETRICAL ULTRASOUND - LIMITED REASON FOR EXAM: Female, 27 years old. pelvic pain PRIOR ULTRASOUND: 9.6. TECHNIQUE: Transabdominal TECHNICAL QUALITY: Adequate. FINDINGS: There is a single intrauterine fetus. The fetus is in a cephalic presentation. There is demonstrated cardiac activity with a heart rate of 135 bpm. There is a normal amniotic fluid volume. The largest amniotic fluid pocket measures 5.2 cm. The amniotic fluid index (SYD) is 14.1 cm. The placenta is posterior in location and is not low lying. There are Grade 1 placental changes. The cervix measures cm in length: . BIOMETRY: BPD: 84 mm: 33 weeks, 6 days HC: 308 mm: 34 weeks, 3 days AC: 309 mm: 34 weeks, 6 days FL: 69 mm: 35 weeks, 2 days CI: NA FL/AC: 22.2 FL/BPD: 81.6 HC/AC: 1 age by current US: 34 weeks, 3 days. JAJA by current US: 5.7.24. Estimated weight: 2549 grams, +/- 382 grams, %. Age by LMP: 35 weeks, 6 days. JAJA by LMP: 4.27.24 US/OB Limited With Biometrics IMPRESSION: There is a single live intrauterine with a heart rate of 135 bpm. Electronically Signed: Raudel Hill MD at 15:33 EDT ,
== END | disposition home or self-care (01) ==
LOC: US 14:18
PROVIDERS: PCP Nurse Practitioner Family; Referring Provider Obstetrics & Gynecology; Visit Provider Obstetrics & Gynecology
DX: O99.891 Other specified diseases and conditions complicating pregnancy (principal); R10.2 Pelvic and perineal pain; Z3A.35 35 weeks gestation of pregnancy
CPT/HCPCS: 76816

== ENCOUNTER → 2023-05-24 | Outpatient (CLI) | payer OTHER, SELFPAY | END | disposition home or self-care (01) | LOC: LABSPEC 12:37 | PROVIDERS: PCP Nurse Practitioner Family; Referring Provider Obstetrics & Gynecology; Visit Provider Obstetrics & Gynecology | DX: Z34.90 Encounter for supervision of normal pregnancy, unspecified, unspecified trimester (principal); Z3A.00 Weeks of gestation of pregnancy not specified | CPT/HCPCS: 87081 ==

== ENCOUNTER 2023-06-02 17:13 | Inpatient (IN) | payer OTHER, SELFPAY ==
[2023-06-02] VITALS (16 sets, daily range): BP systolic 96–124; BP diastolic 51–74; PULSE 70–97; RESP 14–21; TEMP 36.2–37.1; O2SAT 96–99; BMI 27.8
[2023-06-02] MEDS: Lactated Ringers 1,000 ML 999 ML IV (15:00)
[2023-06-02 15:12] LABS: Absolute Lymphocyte Count 1.89 X10^3/uL (0.83-4.51); Absolute Neutrophil Count 7.7 X10^3/uL (2.0-7.7); Basophil# 0.02 X10^3/uL; Basophil% 0.2 % (0-1); Eosinophil# 0.02 X10^3/uL; Eosinophils% 0.2 % (0-5); Hematocrit 34.4 % (37-47); Lymphocyte # 1.89 X10^3/ul (0.83-4.51); Lymphocyte % 18.4 % (19-41); Mean Corpuscular Hgb 25.2 pg (27.0-32.0); Mean Corpuscular Volume 78.9 fL (81-99); Mean Platelet Vol. 11.2 fl (6.2-12.0); Monocyte# 0.57 X10^3/uL; Monocyte% 5.5 % (0-10); NRBC Flagged by Analyzer 0 % (0-5); Neutrophil # 7.74 X10^3/uL (2.7-7.7); Neutrophil % 75.2 % (47-70); Platelet Count 211 K/mm3 (150-450); RBC Distribution Width CV 14.2 % (11.6-14.6); RBC Distribution Width SD 41.1 fl (35.1-43.9); Red Blood Count 4.36 M/mm3 (4.2-5.4); White Blood Count 10.3 K/mm3 (4.4-11.0)
[2023-06-02] MEDS: Lactated Ringers 1,000 ML 200 ML IV (17:05)
[2023-06-02] MEDS: Acetaminophen 500 MG Tablet 1000 MG PO ×2 (17:19→23:40)
[2023-06-02] MEDS: Sodium Citrate/Citric Acid 30 ML UDC PO (17:30)
--- NOTE | 2023-06-02 17:36 | HP.PCM.OB_ITS ---
HPI - General General Date of Admission: 06/02/23 HPI Narrative CHELLE DAY, is a 27 F who presents IAL made cervical change to 3 cm with regular ctx, no vb or lof admits good fm. Maternal Data Information JAJA Calculator Estimated Delivery Date Method Current WG Current Estimate 06/18/23 Ultrasound #1 37w 5d PFSH PFSH Allergy/AdvReac Type Severity Reaction Status Date / Time No Known Allergies Allergy Verified 06/02/23 13:32 Family History Grandmother Breast cancer, Onset Age: 50 Father Diabetes Grandmother Diabetes Mother Thyroid disorder Sister Thyroid disorder Other CVA (cerebral vascular accident) Surgical History H/O cystoscopy History of Hx of knee surgery Hx of wisdom tooth extraction Social History adopted: No household members: spouse and children housing: house number of children: 1 current occupational status: employed 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 current occupational exposures/hazards: No pets and animals: Yes (outdoor cat) pets and animals: cat(s) history of recent travel: No sexually active: Yes Smoking Status: Never smoker second hand exposure: No alcohol intake: current alcohol intake frequency: holidays/special occasions only substance use type: does not use what type of physical activity do you participate in: none seatbelt use: always do you feel safe at home: Yes additional social history: [place] - pipeline History 3 Elective abortions Hx Para 1 Spontaneous abortions Hx # Term Pregnancies Ectopic pregnancies Hx # Pregnancies Multiple births # of living children 1 Past Pregnancies Del. Date Name GA/Weeks Outcome Route Bth Weight Gen Labor Lgth Anesthesia Del Locatn Provider FOB Unknown 2022 spontaneous 10/25/21 Marianne 39 live - full term 6#10 Female e pidural [facility] Yimi Madsen [place] Delivery Date: 10/25/21 Last Updated by: Stefania Sanabria failed vacuum Visit Details Expected Delivery Route/Plan RLTCS Plans Covid status: discussed Flu vaccine: given Tdap vaccine: Rhogam: NA LARC form signed: yes Problem list reviewed and updated with the most current plan of care details and appropriate orders placed. Relevant counseling for the gestational age provided. Continue routine care and follow up unless otherwise noted in visit notes/problem list details OB Flowsheet Initial Weight: Not Recorded Date -?-?-?-?-?-?-?-?-?-?-?-?- EGA Weight BP Urine Prot -?-?-?-?-?-?-?-?-?-?-?-?- Glucose FHR FuHt Pres Dilation -?-?-?-?-?-?-?-?-?-?-?-?- Effaced St Visit Note 11/08/22 -?-?-?-?-?-?-?-?-?-?-?-?- 8w 2d 169 lb 110/78 -?-?-?-?-?-?-?-?-?-?-?-?- 170 -?-?-?-?-?-?-?-?-?-?-?-?- SM- CRL cons wit h LMP SM- 1.8 cm CRL cons with LMP 12/09/22 -?-?-?-?-?-?-?-?-?-?-?-?- 12w 5d 165 lb 6 oz 108/70 Nega tive -?-?-?-?-?-?-?-?-?-?-?-?- Negative 150 -?-?-?-?-?-?-?-?-?-?-?-?- SM- no vb crampi ng 12/16/22 -?-?-?-?-?-?-?-?-?-?-?-?- 13w 5d 161 lb 8 oz 120/84 Nega tive -?-?-?-?-?-?-?-?-?-?-?-?- Negative 163 0 -?-?-?-?-?-?-?-?-?-?-?-?- -work in for v ag bleeding. Seen last pm [place] ED. US there pending report but MD at ED appears normal. Brief US today live IUD. Vaginal exam:dark old discharge. Pelvic rest until get US results. Reviewed bleeding precautions. 01/05/23 -?-?-?-?-?-?-?-?-?-?-?-?- 16w 4d 159 lb 2 oz 111/69 Nega tive -?-?-?-?-?-?-?-?-?-?-?-?- Negative 155 0 -?-?-?-?-?-?-?-?-?-?-?-?- JV- pt is worrie d today about continued brown dc with a foul odor. red top collected and will start flagyl based on odor and appearance. The cervix is closed and there is mucous coming from the cervix. 01/17/23 -?-?-?-?-?-?-?-?-?-?-?-?- 18w 2d 157 lb 6 oz 121/73 Nega tive -?-?-?-?-?-?-?-?-?-?-?-?- Negative 145 -?-?-?-?-?-?-?--?-?-?-?-?- JV- no further d ischarge or odor. she has not had intercourse and plans to continue pelvic rest until after her anatomy scan. 02/16/23 -?-?-?-?-?-?-?-?-?-?-?-?- 22w 4d 162 lb 4 oz 112/73 Nega tive -?-?-?-?-?-?-?-?-?-?-?-?- Negative 140 -?-?-?-?-?-?-?-?-?-?-?-?- JCarl- pt has a pre via and will have a rpt scan at 28 weeks. will wait to schedule rpt section until know if the previa resolves. 03/17/23 -?-?-?-?-?-?-?-?-?-?-?-?- 26w 5d 169 lb 126/80 Negative -?-?-?--?-?-?-?-?-?-?-?-?- Negative 145 26 -?-?-?-?-?-?-?-?-?-?-?-?- MH-No VB, LOF. G ood FM. Larc. Nl 28 wk labs. Wants CS w JV 03/29/23 -?-?-?-?-?-?-?-?-?-?-?-?- 28w 3d 173 lb 112/71 Negative -?-?-?-?-?-?-?-?-?-?-?-?- Negative 139 -?-?-?-?-?-?-?-?-?-?-?-?- JV- no lof, vagi nal bleeding, or dec fm. had us today and placental previa is resolved. has cough x 1 month. trying pepcid + zyrtec. lungs clear today 04/11/23 -?-?-?-?-?-?-?-?-?-?-?-?- 30w 2d 169 lb 107/68 Negative -?-?-?-?-?-?-?-?-?-?-?-?- Negative 140 30 -?-?-?-?-?-?-?-?-?-?-?-?- Sm- no vb lof go od fm no regular ctx still having nausea and some loose stool now- will try reglan reviewed infection precautions 04/26/23 -?-?-?-?-?-?-?-?-?-?-?-?- 32w 3d 173 lb 112/72 Negative -?-?-?-?-?-?-?-?-?-?-?-?- 250 g/dL 144 32 -?-?-?-?-?-?-?-?-?-?-?-?- JV- no lof, vagi nal bleeding, or dec fm. feeling much better now. no complaints. 05/13/23 -?-?-?-?-?-?-?-?-?-?-?-?- 34w 6d 175 lb 105/73 -?-?-?-?-?-?-?-?-?-?-?-?- 130 32 -?-?-?-?-?-?-?-?-?-?-?-?- SM- discussed dl elivery planning, no vb lof good fm nor egular ctx ultrasound ordered 05/24/23 -?-?-?-?-?-?-?-?-?-?-?-?- 36w 3d 180 lb 106/74 Negative -?-?-?-?-?-?-?-?-?-?-?-?- Negative 145 35 Cephalic -?-?-?-?-?-?-?-?-?-?-?-?- JV- GBS collecte d. no lof, vaginal bleeding, or dec fm. planning rpt section. 05/30/23 -?-?-?-?-?-?-?-?-?-?-?-?- 37w 2d 179 lb 2 oz 120/83 Nega tive -?-?-?-?-?-?-?-?-?-?-?-?- Negative 135 36 Cephalic -?-?-?-?-?-?-?-?-?-?-?-?- JV- no lof, vagi nal bleeding, or dec fm. NST FHR Rate Baby A Baseline: 140 Variability:: Moderate Accelerations:: 15 x 15 Decelerations:: None NST Reactive:: Yes FHR Category:: Category I Uterine Activity:: q3-5 ROS Constitutional Constitutional: Reports systems reviewed and no addt'l complaints, except as documented ENT HEENT: Reports systems reviewed and no addt'l complaints, except as documented Cardiovascular Cardiovascular: Reports systems reviewed and no addt'l complaints, except as documented Respiratory/Chest Respiratory/Chest: Reports systems reviewed and no addt'l complaints, except as documented Gastrointestinal Gastrointestinal: Reports systems reviewed and no addt'l complaints, except as documented and nausea; Denies abdominal pain Genitourinary Genitourinary: Reports systems reviewed and no addt'l complaints, except as documented, contractions Details: present and frequency (regular ) and movement Details: present Musculoskeletal Musculoskeletal: Reports systems reviewed and no addt'l complaints, except as documented Integumentary Integumentary: Reports as per HPI Neurologic Neurologic: Reports systems reviewed and no addt'l complaints, except as documented Endocrine Endocrinology: Reports systems reviewed and no addt'l complaints, except as documented Vital Signs Vital Signs Vital Signs: 06/02/23 13:31 06/02/23 13:31 06/02/23 13:31 Temperature Temperature Source Temporal Pulse Rate 88 Respiratory Rate Blood Pressure 124/74 H BP Systolic 124 BP Diastolic 74 Pulse Ox 06/02/23 13:31 06/02/23 13:31 06/02/23 13:31 Temperature 97.3 F L Temperature Source Pulse Rate Respiratory Rate 16 Blood Pressure BP Systolic BP Diastolic Pulse Ox 98 06/02/23 15:57 06/02/23 15:57 06/02/23 15:57 Temperature Temperature Source Pulse Rate 88 97 Respiratory Rate Blood Pressure 120/74 BP Systolic 120 BP Diastolic 74 Pulse Ox 06/02/23 15:57 06/02/23 15:56 06/02/23 15:56 Temperature Temperature Source Temporal Pulse Rate Respiratory Rate 16 Blood Pressure BP Systolic BP Diastolic Pulse Ox 99 06/02/23 15:56 06/02/23 17:03 06/02/23 17:03 Temperature 98.1 F Temperature Source Pulse Rate 81 Respiratory Rate Blood Pressure 119/72 BP Systolic 119 BP Diastolic 72 Pulse Ox Weight Weight: 178 lb 2.136 oz Body Mass Index (BMI) 27.8 Physical Exam Const alert, oriented x3 and healthy appearing Constitutional Narrative: uncomfortable with contractions HEENT normocephalic and moist oral mucous membranes Head and Scalp: atraumatic Neck full ROM, no lymphadenopathy, supple and thyroid normal General: trachea midline Thyroid: thyroid normal Lymph Lymphatic: no lymphadenopathy noted Chest inspection of chest normal Resp normal respiratory effort Cardio regular rate GI normal to inspection, nondistended, normoactive bowel sounds, soft to palpation and non-tender Inspection: gravid external exam normal Bimanual Exam - Vag & Uterus: uterus non-tender Manual OB Exam: estimated gestational size appropriate, presentation cephalic, dilated, effaced and station Extremity normal to inspection General Extremity: Negative for edema Skin no rashes or lesions noted Neuro deep tendon reflexes 2+ bilaterally Motor Exam: strength 5/5 throughout and clonus absent Psych mental status grossly normal Labs Labs Labs: Blood Type AB POSITIVE Antibody Screen NEGATIVE Hct 34.4 % (37-47) L Hgb 11.0 g/dL (12.0-15.0) L Obstetrics Ultrasound Syphilis Total Ab Non-reactive Rubella IgG Antibody Reactive (Nonreactive) Hep Bs Antigen Non-Reactive (Nonreactive) Hepatitis C Antibody Non-Reactive (Nonreactive) Chlamydia DNA (ELIZABETH) Negative (Negative) N.gonorrhoeae DNA (ELIZABETH) Negative (Negative) HIV 1&2 Antibody Non-Reactive (Nonreactive) Glucose 1 Hr 50 gm 132 mg/dL (70-140) Rhogam given: No Assessment & Plan (1) Active labor at term: COMMENT: declined tolac (2) Uterine size-date discrepancy, third trimester: COMMENT: growth US ordered (3) Depression: COMMENT: counseling in high school, no meds. Stable (4) Previous delivery affecting : COMMENT: plan RLTCS w GAURAV 06/13 @ 7:15 (5) : QUALIFIERS: Weeks of gestation: 37 weeks Qualified Code(s): Z3A.37 - 37 weeks gestation of COMMENT: genetic and carrier declined. (6) Supervision of normal : QUALIFIERS: Normal : other normal Trimester: second trimester Qualified Code(s): Z34.82 - Encounter for supervision of other normal , second trimester COMMENT: [id number] JAJA 06/18/23 surprise PC Peyton cecil PLAN: Plan plan RLTCS now due to cervical change and regular ctx, decline TOLAC and less than 10% chance of success
--- NOTE | 2023-06-02 17:38 | EX.PCM.OBRPT ---
Assessment & Plan (1) Supervision of normal : QUALIFIERS: Normal : other normal Trimester: second trimester Qualified Code(s): Z34.82 - Encounter for supervision of other normal , second trimester COMMENT: [id number] JAJA 06/18/23 surprise PC Peyton saud (2) : QUALIFIERS: Weeks of gestation: 37 weeks Qualified Code(s): Z3A.37 - 37 weeks gestation of COMMENT: genetic and carrier declined. (3) Previous delivery affecting : COMMENT: plan RLTCS w JV 06/13 @ 7:15 (4) Depression: COMMENT: counseling in high school, no meds. Stable (5) Uterine size-date discrepancy, third trimester: COMMENT: growth US ordered (6) Active labor at term: COMMENT: declined tolac Maternal Data Information JAJA Calculator Estimated Delivery Date Method Current WG Current Estimate 06/18/23 Ultrasound #1 37w 5d Details Operative Information Date of Procedure: 06/02/23 Pre-Operative Diagnosis: see a/p diagnoses Post-Operative Diagnosis: same Indications Narrative: surgeon: Kelley Ibarra MD Procedure Type: low transverse grape grower #2: Arsenio Alas Type of Anesthesia: Epidural Special Medications: none Drain: Pack to straight drain Estimated Blood Loss: 700 Fluids Replaced: crystalloid Procedure Start Time: 17:57 Procedure Stop Time: 18:35 Findings Description of Procedure: The patient was placed in the dorsal supine position with leftward tilt. Patient was prepped and draped in the normal sterile fashion. Pfannenstiel skin incision was made with the scalpel and carried through to the underlying layer of fascia with the scalpel. Fascia was nicked in the midline and the incision extended laterally. The rectus bellies were dissected off superiorly and inferiorly with out complication both sharply and bluntly. The peritoneum was entered digitally. The incision was stretched and a low transverse uterine incision was made with the scalpel. The 's head was delivered atraumatically followed by the anterior and posterior shoulders without complication the rest of the delivered. The cord was clamped and cut and the infant was handed off to awaiting nurse. The placenta was delivered spontaneously immediately following and was noted to be intact and have a three-vessel cord. The uterus was exteriorized cleared of all clots and debris, and the incision was closed in a single layer closure using #1 Monocryl. The ovaries and fallopian tubes were noted to be within normal limits. The uterus was returned to the maternal abdomen and gutters were cleared of all clots and debris. hemoblast used for hemostasis. The peritoneum was closed with 3-0 Monocryl in a running fashion. Fascia was closed with 0 PDS in a running fashion. Subcutaneous tissue was copiously irrigated and the skin was closed with 3-0 Monocryl in a subcuticular fashion. Mepilex dressing was applied without complication. Patient was taken to recovery in stable condition. Placental Delivery Description: Spontaneous Placenta Disposition: [facility] Cord Vessel Description: 3 Vessels Delayed Cord Clamping: Yes Complications Risks of Surgery Discussed w/Patient: Bleeding, Infection, Need for Future C-Sections and Injury to surrounding structure(s) including bowel and bladder Complications: none Admit VTE Documentation VTE Present on Admission: No VTE Mechan Device Prophylaxis: SCD's Procedures Urinary/Genital [id number]: [id number] Delivery [facility]
[2023-06-02 17:40] LABS: Syphilis Antibodies Non-reactive
[2023-06-02] MEDS: Cefazolin 2 GM in 0.9% Normal Saline (100mL Bag) 100 ML IV (17:40)
--- NOTE | 2023-06-02 17:41 | PCM.DC ---
Discharge Instructions Diet Discharge Diet: No restrictions Activity Discharge Activity: May Not Drive (for 2 weeks or while taking narcotic pain medications.), May Shower and May Take a Tub Bath (in 7 days) May shower in (days): 0 May resume sexual activity in: 4-6 weeks Weight Bearing Status: Full weight bearing Lifting Restrictions: 20 pounds Dressing / Incision Call your doctor if your incision/area has: Continuous Slow Oozing, Sudden Increased Bleeding, Increased Pain/ Swelling, Increased Redness and Foul Smelling Discharge Call your doctor if you observe: Fever of 101 or Higher and Using more than 1 pad per hour (for 2 hours) Suture Line Care: Avoid Pulling/Pushing and Avoid Pinching/Bending Cleanse incision/area with: Soap & Water and Keep Dressing Clean & Dry Follow Up Care Please Follow Up With: Kelley Ibarra MD When: Call [phone] to make an appointment for an incision check in 1-2 weeks. Test Results: Test results from this visit will be discussed in further detail at your follow-up appointment, if applicable. Discharge Plan Admission Admit Date/Time: 06/02/23 17:13 Attending Provider: Kelley Ibarra Primary Care Provider: Majo Blunt NP Discharge Orders/Prescriptions Prescriptions: New oxycodone-acetaminophen [Percocet] 5-325 mg tablet 1 tab PO Q6H PRN (Reason: pain) 7 Days Qty: 20 0RF naproxen [naproxen] 500 mg tablet 500 mg PO BID PRN PRN (Reason: Pain) Qty: 30 1RF Referrals / Follow Up: Majo Blunt NP, [facility] [Primary Care Provider] - Disposition Disposition (needs filled in before D/C Order can be placed): Home, Self Care
[2023-06-02] MEDS: Oxytocin 15 Units/NS 250ml 15 UNITS/250 ML IV.SOLN 83 UNITS IV (19:00)
[2023-06-02] MEDS: Ketorolac 30 MG/ML Syringe IV (19:50)
[2023-06-02] MEDS: Lactated Ringers 1,000 ML 100 ML IV (22:14)
[2023-06-03 01:16] VITALS: BP 109/73; PULSE 83; RESP 16; TEMP 36.8
[2023-06-03] MEDS: Ketorolac 30 MG/ML Syringe IV ×3 (02:14→15:39)
[2023-06-03 04:36] LABS: Hematocrit 29.7 % (37-47); Hemoglobin 9.3 g/dL (12.0-15.0); Mean Corp Hgb Conc 31.3 g/dL (32-36); Mean Corpuscular Hgb 25.1 pg (27.0-32.0); Mean Corpuscular Volume 80.1 fL (81-99); Mean Platelet Vol. 11.4 fl (6.2-12.0); Platelet Count 202 K/mm3 (150-450); RBC Distribution Width CV 14.2 % (11.6-14.6); RBC Distribution Width SD 41.5 fl (35.1-43.9); Red Blood Count 3.71 M/mm3 (4.2-5.4)
[2023-06-03 04:55] VITALS: BP 103/56; PULSE 73; RESP 16; TEMP 36.3; O2SAT 97
--- NOTE | 2023-06-03 05:38 | PCM.PN.OB ---
Subjective Subjective Patient doing well without complaints. Tolerating PO. Ambulating and voiding without difficulty. feeding well. Denies chest pain, shortness of breath, calf pain/swelling, fevers, chills, lightheadedness. Objective Data Objective Data Vital Signs: Vital Signs Temp Pulse Resp BP Pulse Ox O2 Del Method 97.3 F L 73 16 103/56 L 97 Room Air 06/03/23 04:55 06/03/23 04:55 06/03/23 04:55 06/03/23 04:55 06/03/23 04:55 06/03/23 04:55 Oxygen Delivery Method Room Air Weight: 178 lb 2.136 oz Body Mass Index (BMI) 27.8 Intake & Output: Intake and Output for Last 24 Hours 06/01/23 06/02/23 06/03/23 23:59 23:59 23:59 Intake Total 1762.33 / 1762.33 Output Total 1000 / 1000 600 / 600 Balance 762.33 / 762.33 -600 / -600 Lab / Micro Data 06/03/23 04:15 Labs: Laboratory Results - last 24 hr 06/02/23 15:00: WBC 10.3, RBC 4.36, Hgb 11.0 L, Hct 34.4 L, MCV 78.9 L, MCH 25.2 L, MCHC 32.0, RDW Std Deviation 41.1, RDW Coeff of Savi 14.2, Plt Count 211, MPV 11.2, Immature Gran % (Auto) 0.500, Neut % (Auto) 75.2 H, Lymph % (Auto) 18.4 L, [place] % (Auto) 5.5, Eos % (Auto) 0.2, Baso % (Auto) 0.2, Absolute Neuts (auto) 7.7, Absolute Lymphs (auto) 1.89, Nucleated RBC % 0, Syphilis Total Ab Non-reactive, Blood Type AB POSITIVE, Antibody Screen NEGATIVE 06/03/23 04:15: WBC 10.0, RBC 3.71 L, Hgb 9.3 L, Hct 29.7 L, MCV 80.1 L, MCH 25.1 L, MCHC 31.3 L, RDW Std Deviation 41.5, RDW Coeff of Savi 14.2, Plt Count 202, MPV 11.4 ROS Constitutional Constitutional: Reports systems reviewed and no addt'l complaints, except as documented Cardiovascular Cardiovascular: Reports systems reviewed and no addt'l complaints, except as documented Respiratory/Chest Respiratory/Chest: Reports systems reviewed and no addt'l complaints, except as documented Gastrointestinal Gastrointestinal: Reports systems reviewed and no addt'l complaints, except as documented Physical Exam Const alert, oriented x3 and no apparent distress HEENT Head and Scalp: atraumatic Resp normal respiratory effort GI soft to palpation and non-tender Inspection: incision intact, healing well and drainage (none) Bimanual Exam - Vag & Uterus: uterus non-tender Uterus Palpation: uterus fundus firm (below Umbilicus) Assessment & Plan (1) delivery delivered: COMMENT: RLTCS IAL 37 PLAN: Plan /s/p LTCS PPD # 1 1. routine post care 2. breast feeding- support given 3. rh positive 4. rubella immune
[2023-06-03] MEDS: Acetaminophen 500 MG Tablet 1000 MG PO ×3 (05:42→18:22)
[2023-06-03] MEDS: 0.9% Saline Lock 10 ML Syringe IV ×2 (07:49→15:39)
[2023-06-03 09:09] VITALS: BP 97/66; PULSE 74; RESP 20; TEMP 36.3; O2SAT 97
[2023-06-03] MEDS: Senna/Docusate Sodium 1 Tablet PO (11:25)
[2023-06-03 11:36] VITALS: BP 103/62; PULSE 74; RESP 20; TEMP 36.6; O2SAT 98
[2023-06-03 16:00] VITALS: BP 115/65; PULSE 80; RESP 16; TEMP 36.7; O2SAT 98
--- NOTE | 2023-06-03 18:02 | NURSING ---
1700 pt has still been unable to void after being st. cath this morning. She has tried showering and running water, states she has been drinking water. Discussed with Nathalie, charge nurse and decision made to st. cath again and give patient a little longer d/t her history of urinary trouble. St. cath for 400cc and fluids encouraged.
[2023-06-03 20:00] VITALS: BP 105/88; PULSE 80; RESP 16; TEMP 36.3; O2SAT 99
[2023-06-03] MEDS: Naproxen 500 MG Tablet PO (21:22)
[2023-06-03] MEDS: oxyCODONE 5 MG Tablet PO (22:14)
[2023-06-04] MEDS: Acetaminophen 500 MG Tablet 1000 MG PO ×3 (00:40→11:30)
[2023-06-04 01:52] VITALS: BP 96/68; PULSE 64; RESP 16; TEMP 36.2; O2SAT 98
[2023-06-04] MEDS: Naproxen 500 MG Tablet PO ×2 (05:32→11:21)
[2023-06-04 07:57] VITALS: BP 104/66; PULSE 73; RESP 16; TEMP 36.9; O2SAT 98
--- NOTE | 2023-06-04 09:08 | CASEMGMT ---
Social Work Brief Assessment, labor and delivery unit Date/Time of referral:06/04/23, 2:27am Referred by: Dr. Kelley Montenegro Date/Time of intervention: 06/04/23, 8:50am Reason for referral: Mental Health, depression. Also verbally RN stating MOB seems overwhelmed this morning. History obtained from: MOB, FOB and medical record Household composition: FOB, MOB, 19 month old daughter and now baby Marguerite. FOB and MOB have been together since 2018. Parent/Guardian Status: MOB and FOB guardians of this baby. Medical History: MOB--hx of knee surgery, wisdom tooth removal, prior . Baby: Born 06/02/23, 18:03, 2.71 kg, Apgars 9 and 9 Financial Status: No concerns. 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 She is off for the rest of the school year. 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 Infant Supplies: They have all needed supplies including diapers, wipes, clothing, car seat, crib, bassinet, access to bottles and formula if needed--MOB plans to breast feed. Transportation: 2 vehicles Childcare/Caregivers/Support: They have a benefit authorizer. Additionally, FODallas's father helps w/watching the 19 month old and is a support. FOB's father is in the area and supportive. MOB's family is out of town in [place]. Programs/Agencies/Children's Services/Legal Issues: None Behavioral Health: Substance abuse: None for MOB or FOB. Mental Health: No history for FOB. CASH reports history of depression and anxiety. She has not been on medications. She states has been stable the last year. She states was in counseling in High School and in 2019. MOB states she does think had some PPD after the first child but did not want to admit it. Family/Social Stressors: None reported depression/anxiety/shaken baby/safe sleeping/[facility] Resources/Help Me Grow/Counseling Resources: SW gave information on all of these topics and reviewed with MOB and FOB. SW reviewed in particular information on PPD and anxiety and the warning signs. SW spoke w/MOB about reaching out to her ENERGY AND CONSERVATION TECHNICIAN should she notice having symptoms again, as some people do benefit from a mood enhancer short term. SW also spoke about her considering short term counseling if having symptoms. MOB seems open to both. Assessment: MOB and FOB spoke w/SW, answered all questions. MOB states she was feeling overwhelmed when FOB had to go home but he is here now and she is feeling better. We spoke about feeling overwhelmed and the importance of asking for help if needed. MOB seems open and agreeable to this. FOB also seems very aware of MOB feeling overwhelmed, he seems to be hands on and involved. FOB took two weeks off of work after the of this child. Baby arrived early, and though FOB states they were prepared with everything that was needed, they were thinking would get sent home when they came in two days ago. Support offered and resources given to MOB and FOB. Plan: No further social service needs at this time, Baby to go home w/MOB and FOB at discharge. YVETTE Niño
--- NOTE | 2023-06-04 09:13 | PCM.PN.OB ---
Subjective Subjective Patient is laying in bed comfortably without complaints. She states that she slept on an off during the night. Lochia is mild and pain is minimal. Objective Data Objective Data Vital Signs: Vital Signs Temp Pulse Resp BP Pulse Ox O2 Del Method 98.4 F 73 16 104/66 98 Room Air 06/04/23 07:57 06/04/23 07:57 06/04/23 07:57 06/04/23 07:57 06/04/23 07:57 06/04/23 07:57 Oxygen Delivery Method Room Air Weight: 178 lb 2.136 oz Body Mass Index (BMI) 27.8 Intake & Output: Intake and Output for Last 24 Hours 06/02/23 06/03/23 06/04/23 23:59 23:59 23:59 Intake Total 1762.33 / 1762.33 976.67 / 976.67 Output Total 1000 / 1000 2650 / 2650 Balance 762.33 / 762.33 -1673.33 / -1673.33 Lab / Micro Data 06/03/23 04:15 ROS Constitutional Constitutional: Reports systems reviewed and no addt'l complaints, except as documented Cardiovascular Cardiovascular: Denies chest pain, dizziness, dyspnea or irregular heart rhythm Respiratory/Chest Respiratory/Chest: Denies cough, pain on inspiration or shortness of breath at rest Gastrointestinal Gastrointestinal: Denies abdominal pain, nausea or vomiting Genitourinary Genitourinary: Denies burning urination Musculoskeletal Musculoskeletal: Denies muscle cramps, muscle spasms or muscle weakness Neurologic Neurologic: Denies confusion, dizziness, headache(s) or lack of coordination Psychiatric Psychiatric: Denies anxiety, behavioral changes or depression Physical Exam HEENT normocephalic Resp normal respiratory effort and normal air movement GI soft to palpation, non-tender and non-distended Rectal Exam: other Other Details: Incision is clean, dry, and intact no CVA tenderness Extremity normal to inspection General Extremity: edema bilateral (trace ) Assessment & Plan (1) delivery delivered: COMMENT: ALEJANDRINA RLTCS IAL 37 PLAN: s/p LTCS PPD # 1 1. routine post care 2. breast feeding- support given 3. rh positive 4. rubella immune 5.patient would like to go home today if possible. dc order in for later today.
[2023-06-04] MEDS: Senna/Docusate Sodium 1 Tablet PO (11:21)
[2023-06-04 13:18] VITALS: BP 114/72; PULSE 85; RESP 16; TEMP 36.1; O2SAT 99
== END 2023-06-04 13:50 | disposition home or self-care (01) | DRG 788 ==
LOC: WPOUT 17:13 → WP 17:13
PROVIDERS: Admitting Provider Obstetrics & Gynecology; PCP Nurse Practitioner Family; Referring Provider Obstetrics & Gynecology; Visit Provider Obstetrics & Gynecology
DX: O34.211 Maternal care for low transverse scar from previous cesarean delivery (principal); Z03.74 Encounter for suspected problem with fetal growth ruled out; Z37.0 Single live birth; Z3A.37 37 weeks gestation of pregnancy
CPT/HCPCS: 59025; 59050; 85025; 85027; 86780; 86850; 86900; 86901; 99221; J7120; A4216; G0378; J2405